=== PATIENT | male | born 1980 | race Caucasian/White ===

== ENCOUNTER 2020-08-11 23:43 | Inpatient (IN) | payer BC, OTHER ==
[~2020-08-11] VITALS: Ht 175.3 cm; Wt 83.8 kg
[2020-08-11] MEDS ORDERED: LEVAQUIN (23:54)
--- NOTE | 2020-08-11 23:54 | NUR ---
PT BIB EMS FROM [facility] AT A TRANSFER AFTER [facility] H[facility]OPT[facility] AND [facility] STOOLS TODAY. PT REPORTS FEELING DIZZY AND MORE TIRED SO HE WENT INTO ED THERE. BED IN LOWEST, CALL LIGHT ON LAP, RAILS ENGAGED. 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 SOFIE SUAREZ AT BS FOR EVAL AND POC. WCTM.
[2020-08-12] MEDS ORDERED: SODIUM CHLORIDE FLUSH 10ML SYR IVF ONE
[2020-08-12] MEDS ORDERED: PANTOPRAZOLE 80 MG in SODIUM CHLORIDE 0.9% 100 ML IV SCH
[2020-08-12 00:20] LABS: BASOPHILS % (AUTO) 1 % (0-1); EOSINOPHILS % (AUTO) 0 % (1-7); LYMPHOCYTES % (AUTO) 17 % (22-44); MEAN CORPUSCULAR HEMOGLOBIN 34.5 pg (27.5-34.5); MEAN CORPUSCULAR HGB CONC 34.8 g/dL (33.2-36.2); MONOCYTES % (AUTO) 17 % (2-9); NEUTROPHILS % (AUTO) 66 % (42-75); PLATELET COUNT 144 x10^3/uL (130-400); RED BLOOD COUNT 3.53 x10^6/uL (4.38-5.82); RED CELL DISTRIBUTION WIDTH 13.1 % (9.4-14.8)
[2020-08-12 00:21] LABS: MD NO
--- NOTE | 2020-08-12 00:22 | NUR ---
PT RESTING ON GUISAURA, NAD, MEDICATIONS ORDERED FROM PHARMACY, PROVIDED PILLOW AND ORAL SWABS FOR COMFORT, AMBULATED TO AND FROM RESTROOM WITH A SMOOTH AND STEADY GAIT, DENIES ADDITIONAL QUESTIONS OR NEEDS AT THIS TIME. ISAIAS.
[2020-08-12 00:32] LABS: ALANINE AMINOTRANSFERASE 79 U/L (12-78); ALBUMIN 3.1 g/dL (3.4-5.0); ANION GAP 15 mmol/L (5-15); CALCIUM 7.6 mg/dL (8.5-10.1); CHLORIDE 110 mmol/L (98-107); CREATININE 0.86 mg/dL (0.7-1.3)
[2020-08-12 00:35] LABS: ALKALINE PHOSPHATASE 44 U/L (45-117); TOTAL PROTEIN 6.6 g/dL (6.4-8.2)
[2020-08-12 00:38] LABS: INTERNATIONAL NORMALIZED RATIO 1.32 (0.93-1.1)
[2020-08-12] MEDS ORDERED: PROMETHAZINE 25 MG/ML, 1ML ONE (00:58)
[2020-08-12] MEDS ORDERED: PROMETHAZINE 25 MG/ML, 1ML IM ONE (01:00)
--- NOTE | 2020-08-12 01:08 | NUR ---
PT RESTING ON GURSONIA, NAD, MEDICATED PER MAR, PT STATES "I AM FEELING A BIT NAUSEATED" 5 RIGHTS OBSERVED, DENIES ADDITIONAL QUESTIONS OR NEEDS, BED IN LOWEST, CALL LIGHT ON LAP, PROVIDED SCRUB PANTS TO SLEEP IN PER REQUEST, WCTM.
[2020-08-12] MEDS ORDERED: ONDANSETRON 2MG/ML, 2ML IVPush PRN (01:30)
[2020-08-12 01:59] VITALS: BP 127/75
[2020-08-12] MEDS: SODIUM CHLORIDE 0.9% 1,000 ML IV SCH ×3 (03:07→20:08)
[2020-08-12] MEDS: morphine SULFATE 10 MG/ML, 1ML IVPush PRN ×7 (03:11→22:59)
[2020-08-12] MEDS: LEVOFLOXACIN 250 MG TABLET PO SCH (04:12)
[2020-08-12 07:36] VITALS: BP 124/80
[2020-08-12] MEDS: PANTOPRAZOLE 40 MG IV IVPush SCH ×2 (08:33→20:07)
[2020-08-12] MEDS ORDERED: PROPOFOL 10 MG/ML, 50ML ONE (08:33)
[2020-08-12] MEDS ORDERED: CALCIUM CHLORIDE 10%, 10ML SYR IVPush ONE (11:30)
[2020-08-12 11:57] VITALS: BP 150/99
[2020-08-12] MEDS ORDERED: CALCIUM CHLORIDE 13.6 MEQ in SODIUM CHLORIDE 0.9% 100 ML IV ONE (12:00)
[2020-08-12] MEDS: SUCRALFATE 1 GM TABLET PO SCH ×3 (12:45→20:07)
[2020-08-12] MEDS ORDERED: CHLORHEXIDINE 15 ML UDC ONE (14:25)
[2020-08-12 20:35] VITALS: BP 151/92
[2020-08-13 00:12] VITALS: BP 122/87
[2020-08-13] MEDS: LEVOFLOXACIN 250 MG TABLET PO SCH (03:37)
[2020-08-13] MEDS: morphine SULFATE 10 MG/ML, 1ML IVPush PRN ×5 (03:37→21:17)
[2020-08-13] MEDS: SODIUM CHLORIDE 0.9% 1,000 ML IV SCH ×3 (03:38→22:43)
[2020-08-13 04:50] LABS: BASOPHILS % (AUTO) 1 % (0-1); EOSINOPHILS % (AUTO) 4 % (1-7); LYMPHOCYTES % (AUTO) 39 % (22-44); MEAN CORPUSCULAR HEMOGLOBIN 34.6 pg (27.5-34.5); MEAN CORPUSCULAR HGB CONC 35.4 g/dL (33.2-36.2); MONOCYTES % (AUTO) 8 % (2-9); NEUTROPHILS % (AUTO) 47 % (42-75); PLATELET COUNT 65 x10^3/uL (130-400); RED BLOOD COUNT 2.74 x10^6/uL (4.38-5.82); RED CELL DISTRIBUTION WIDTH 13.1 % (9.4-14.8)
[2020-08-13 04:58] LABS: CALCIUM 8.2 mg/dL (8.5-10.1); CHLORIDE 111 mmol/L (98-107)
[2020-08-13 05:03] LABS: % IRON SATURATION 90 % (20-55); ALANINE AMINOTRANSFERASE 52 U/L (12-78); ALBUMIN 2.9 g/dL (3.4-5.0); ALKALINE PHOSPHATASE 38 U/L (45-117); ANION GAP 6 mmol/L (5-15); CREATININE 0.73 mg/dL (0.7-1.3); IRON LEVEL 237 mcg/dL (65-175); TOTAL IRON BINDING CAPACITY 264 mcg/dL (250-450); TOTAL PROTEIN 5.8 g/dL (6.4-8.2)
[2020-08-13 06:15] LABS: MD SCAN
[2020-08-13 06:46] VITALS: BP 137/95
[2020-08-13] MEDS: SUCRALFATE 1 GM TABLET PO SCH ×4 (07:00→21:00)
[2020-08-13] MEDS ORDERED: MIDAZOLAM 1 MG/ML, 2ML ONE (08:29)
[2020-08-13 09:30] VITALS: BP 132/83
[2020-08-13] MEDS: OMEPRAZOLE 20 MG CAPSULE.DR PO SCH (10:53)
[2020-08-13 12:05] VITALS: BP 129/78
[2020-08-13 19:57] VITALS: BP 131/80
[2020-08-14] MEDS: LEVOFLOXACIN 250 MG TABLET PO SCH (03:02)
[2020-08-14 03:03] VITALS: BP 132/88
[2020-08-14 05:46] LABS: BASOPHILS % (AUTO) 1 % (0-1); EOSINOPHILS % (AUTO) 5 % (1-7); LYMPHOCYTES % (AUTO) 28 % (22-44); MEAN CORPUSCULAR HEMOGLOBIN 35.1 pg (27.5-34.5); MEAN CORPUSCULAR HGB CONC 35.8 g/dL (33.2-36.2); MEAN PLATELET VOLUME 8.5 fL (7.4-10.4); MONOCYTES % (AUTO) 10 % (2-9); NEUTROPHILS % (AUTO) 56 % (42-75); PLATELET COUNT 58 x10^3/uL (130-400); RED BLOOD COUNT 2.64 x10^6/uL (4.38-5.82); RED CELL DISTRIBUTION WIDTH 12.8 % (9.4-14.8)
[2020-08-14 05:53] LABS: ANION GAP 5 mmol/L (5-15); CALCIUM 7.8 mg/dL (8.5-10.1); CHLORIDE 109 mmol/L (98-107); CREATININE 0.67 mg/dL (0.7-1.3)
[2020-08-14] MEDS: morphine SULFATE 10 MG/ML, 1ML IVPush PRN (06:11)
[2020-08-14] MEDS: SODIUM CHLORIDE 0.9% 1,000 ML IV SCH ×3 (06:11→21:17)
[2020-08-14 06:20] LABS: MD SCAN
[2020-08-14 07:17] VITALS: BP 122/80
[2020-08-14] MEDS: SUCRALFATE 1 GM TABLET PO SCH ×4 (07:48→21:17)
[2020-08-14] MEDS: OMEPRAZOLE 20 MG CAPSULE.DR PO SCH (07:48)
[2020-08-14] MEDS ORDERED: IBUPROFEN 200 MG TABLET PO PRN (08:00)
[2020-08-14] MEDS: SENNA/DOCUSATE TABLET PO SCH (08:11)
[2020-08-14 13:40] VITALS: BP 115/69
[2020-08-14 18:42] VITALS: BP 103/52
[2020-08-14] MEDS: OXYcodone IR 5MG TABLET PO PRN (21:17)
[2020-08-15 02:00] VITALS: BP 148/78
[2020-08-15] MEDS: LEVOFLOXACIN 250 MG TABLET PO SCH (03:21)
[2020-08-15] MEDS: OXYcodone IR 5MG TABLET PO PRN (03:24)
[2020-08-15] MEDS: SODIUM CHLORIDE 0.9% 1,000 ML IV SCH (04:00)
[2020-08-15 05:50] LABS: MEAN CORPUSCULAR HEMOGLOBIN 35.1 pg (27.5-34.5); MEAN CORPUSCULAR HGB CONC 35.9 g/dL (33.2-36.2); MEAN PLATELET VOLUME 8.3 fL (7.4-10.4); PLATELET COUNT 54 x10^3/uL (130-400); RED BLOOD COUNT 2.56 x10^6/uL (4.38-5.82); RED CELL DISTRIBUTION WIDTH 12.9 % (9.4-14.8)
[2020-08-15 06:01] LABS: ALBUMIN 2.8 g/dL (3.4-5.0); CHLORIDE 108 mmol/L (98-107)
[2020-08-15 06:07] LABS: ALANINE AMINOTRANSFERASE 65 U/L (12-78); ALKALINE PHOSPHATASE 48 U/L (45-117); ANION GAP 7 mmol/L (5-15); CALCIUM 7.6 mg/dL (8.5-10.1); CREATININE 0.68 mg/dL (0.7-1.3)
[2020-08-15 06:24] LABS: MD YES
[2020-08-15 06:27] LABS: EOS#(MANUAL) 0.14 x10^3/uL (0.0-0.4); EOS% (MANUAL) 4 % (1-7); LYMPH#(MANUAL) 0.54 x10^3/uL (1-3.4); LYMPHS% (MANUAL) 16 % (22-44); MONOS#(MANUAL) 0.31 x10^3/uL (0.3-2.7); MONOS% (MANUAL) 9 % (2-9); POLYCHROMASIA 1+; SEG#(MANUAL) 2.41 x10^3/uL (1.8-6.8); SEGS% (MANUAL) 71 % (42-75)
[2020-08-15 06:28] LABS: <PLATELET ESTIMATE> DECREASED; <PLT MORPHOLOGY> NORMAL PLT MORPH
[2020-08-15] MEDS ORDERED: CALCIUM CARBONATE 500 MG TABLET PO ONE (06:30)
[2020-08-15] MEDS ORDERED: MAGNESIUM SULFATE/D5W 100 ML IVPB ONE (06:30)
[2020-08-15] MEDS: SUCRALFATE 1 GM TABLET PO SCH (07:00)
[2020-08-15] MEDS ORDERED: OMEP-110 PO (07:16)
[2020-08-15] MEDS ORDERED: SUCR1TAB33 PO (07:16)
[2020-08-15 07:39] VITALS: BP 120/77
[2020-08-15] MEDS: OMEPRAZOLE 20 MG CAPSULE.DR PO SCH (07:43)
[2020-08-15] MEDS: SENNA/DOCUSATE TABLET PO SCH (07:44)
[2020-08-16 15:43] LABS: ANA SCREEN NEGATIVE (Negative)
== END 2020-08-15 10:30 | disposition home or self-care (01) | DRG 368 ==
LOC: ED 08-12 01:45 → EDIP 08-12 02:05 → 4WST 08-12 02:09 → DCLOUNGE 08-15 10:21
PROVIDERS: ADMIT Internal Medicine; ATTEND Internal Medicine
PROC: 0DBA8ZX Excision of Jejunum, Via Natural or Artificial Opening Endoscopic, Diagnostic (ICD-10-PCS; 2020-08-13)
PROC: 0DB98ZX Excision of Duodenum, Via Natural or Artificial Opening Endoscopic, Diagnostic (ICD-10-PCS; principal; 2020-08-13 08:00)
DX: K21.01 Gastro-esophageal reflux disease with esophagitis, with bleeding (principal); K29.61 Other gastritis with bleeding; K29.91 Gastroduodenitis, unspecified, with bleeding; D62 Acute posthemorrhagic anemia; E87.2 Acidosis; K76.0 Fatty (change of) liver, not elsewhere classified; E87.8 Other disorders of electrolyte and fluid balance, not elsewhere classified; F10.10 Alcohol abuse, uncomplicated; Z77.011 Contact with and (suspected) exposure to lead; Z20.822 Contact with and (suspected) exposure to COVID-19; Z90.49 Acquired absence of other specified parts of digestive tract; J32.9 Chronic sinusitis, unspecified
CPT/HCPCS: 36415; 76700; 80048; 80053; 80074; 82103; 82390; 83516; 83540; 83550; 83690; 83735; 84100; 85014; 85018; 85025; 85610; 85730; 86038; 86850; 86900; 87635; 88305; 99285; G0378; J2250; J2405; J2550; J2704; C9113; J2270; J7030